=== PATIENT | male | born 1955 | race Caucasian/White ===

== ENCOUNTER 2017-02-28 06:34 | Day surgery (SDC) | payer OTHER ==
[2017-02-28] MEDS ORDERED: Lactated Ringers 1,000 ML IV SCH (06:45)
[2017-02-28] MEDS ORDERED: ePHEDrine 50 MG/ML SDV IV ONE (08:00)
[2017-02-28] MEDS ORDERED: Midazolam 1 MG/ML 2 ML SDV IV ONE (08:00)
[2017-02-28] MEDS ORDERED: Propofol 200 MG/20 ML SDV IV ONE (08:00)
--- NOTE | 2017-02-28 08:54 | PCM.OPNOTE ---
- General Post-Op/Procedure Note Date of Surgery/Procedure: 02/28/17 Operative Procedure(s): Colonoscopy with hemorrhoid banding Findings: Large Internal/External Hemorrhoids with bleeding from posterior hemorrhoid at 7 o'clock position Moderate Sigmoid Diverticulosis Pre Op Diagnosis: Rectal bleeding Post-Op Diagnosis: Bleeding hemorrhoids. Diverticulosis Anesthesia Technique: MAC Primary Surgeon: Shane Jones Pathology: none Output, Urine Amount: 0 EBL in mLs: 10 Complications: None Condition: Good
[2017-02-28 10:58] VITALS: BP 104/55
--- NOTE | 2017-02-28 14:23 | HP ---
ADMISSION DATE: 02/28/2017 This 61-year-old male has been having some rectal bleeding. He comes today for colonoscopy and possible hemorrhoid banding. He is medically stable to proceed today. He tolerated the prep well yesterday. His recent history and physical is reviewed and there was no significant change in his health status since then. I again discussed the proposed procedure with him and he agrees to proceed. /[id number] [address] ALBERTO/NEY
--- NOTE | 2017-02-28 14:41 | OR ---
DATE OF OPERATION: 02/28/2017 SURGEON: Shane Jones MD PREOPERATIVE DIAGNOSIS: Rectal bleeding. POSTOPERATIVE DIAGNOSES: 1. Rectal bleeding secondary to internal and external hemorrhoids. 2. Diverticulosis. OPERATION PERFORMED: Colonoscopy with hemorrhoid banding. INDICATIONS FOR SURGERY: This 61-year-old male has developed rectal bleeding over the last several days. Diagnostic colonoscopy is planned. It is felt that a likely source of the patient's bleeding is hemorrhoids and hemorrhoid banding. It is planned as a possibility depending on intraoperative findings. FINDINGS: The patient has a large internal and external hemorrhoid complexes. One of these hemorrhoids is posteriorly at the 7 o'clock position and from this hemorrhoid, some oozing is noted. Other large hemorrhoids were present but no other sources of bleeding are seen. The patient does have a moderate degree of sigmoid diverticulosis, although no active bleeding, inflammation, or other signs of complication are noted in this area. The remainder of the colon appears normal. PROCEDURE IN DETAIL: The patient was taken to the operating room. He was given intravenous sedation and with him in the left lateral decubitus position, digital rectal exam was performed showing no rectal masses. The Olympus colonoscope was inserted into the rectum. Retroflexed examination of the rectal canal was performed. The scope was then carefully advanced under direct visualization through the entire length of the colon until the cecum was reached. Cecal acquisition was confirmed by noting the normal internal cecal anatomy including the appendiceal orifice and ileocecal valve. The light was also noted to transilluminate the abdominal wall in the right lower quadrant. After examining the cecum, the scope was slowly withdrawn sequentially re- examining the colonic segments until the entire colon and rectum had been fully examined. There was a small amount of oozing noted from one of the hemorrhoids, which would be consistent with the patient's symptoms. Hemorrhoid banding was then performed. A band was placed on the posterior hemorrhoid at the 7 o'clock position including the area where there had been oozing and this seemed to control this bleeding. An additional band was placed on the another large hemorrhoid anteriorly at the 11 o'clock position. The patient tolerated the procedure well. ESTIMATED BLOOD LOSS: 10 mL. COMPLICATIONS: None. PROGNOSIS: Good. /[id number] JORGE ALBERTO/NEY
== END 2017-02-28 10:11 | disposition home or self-care (01) ==
LOC: FB.SDS 06:34
PROVIDERS: ATTEND Surgery
DX: K57.30 Diverticulosis of large intestine without perforation or abscess without bleeding (principal); K64.4 Residual hemorrhoidal skin tags; K64.8 Other hemorrhoids; I10 Essential (primary) hypertension; K21.9 Gastro-esophageal reflux disease without esophagitis; E78.5 Hyperlipidemia, unspecified; Z79.01 Long term (current) use of anticoagulants; Z79.899 Other long term (current) drug therapy; Z95.2 Presence of prosthetic heart valve; Z80.0 Family history of malignant neoplasm of digestive organs; Z87.891 Personal history of nicotine dependence
CPT/HCPCS: 45398; J2250; J2704; J7120